=== PATIENT | female | born 1945 | race Two or more races ===

== ENCOUNTER 2021-06-22 07:02 | Day surgery (SDC) | payer OTHER ==
[~2021-06-22 07:02] MED LIST: ARICEPT10 MG PO; NAMENDA XR28 MG PO; VYTORIN 10-101 EACH PO; ZESTRIL10 M1 PO
[2021-06-22] MEDS ORDERED: CEPHALEXIN500 M1 PO (13:58)
[2021-06-22] MEDS ORDERED: CILOXAN5 ML OTIC (13:58)
== END 2021-06-22 16:30 | disposition home or self-care (01) ==
LOC: CIR.AMB 07:02
PROVIDERS: ATTEND Otolaryngology Otology & Neurotology
DX: H72.02 Central perforation of tympanic membrane, left ear (principal); H90.A12 Conductive hearing loss, unilateral, left ear with restricted hearing on the contralateral side